=== PATIENT | male | born 1995 | race Caucasian/White ===

== ENCOUNTER 2017-07-31 16:29 | Emergency (ER) | payer OTHER ==
[~2017-07-31] VITALS: Ht 170.2 cm; Wt 66.5 kg
[2017-07-31 17:48] LABS: BASOPHILS # (AUTO) 0.06 x10^3/uL (0-0.3); BASOPHILS % (AUTO) 0 % (0-1); EOSINOPHILS # (AUTO) 0.02 x10^3/uL (0-0.8); EOSINOPHILS % (AUTO) 0 % (1-7); LYMPHOCYTES # (AUTO) 1.67 x10^3/uL (1-6.1); LYMPHOCYTES % (AUTO) 10 % (22-44); MD NO; MEAN CORPUSCULAR HEMOGLOBIN 30.3 pg (27.5-34.5); MEAN CORPUSCULAR HGB CONC 33.2 g/dL (33.2-36.2); MEAN CORPUSCULAR VOLUME 91.2 fL (81-97); MEAN PLATELET VOLUME 7.4 fL (7.4-10.4); MONOCYTES # (AUTO) 1.23 x10^3/uL (0-1.4); MONOCYTES % (AUTO) 7 % (2-9); NEUTROPHILS # (AUTO) 14.67 x10^3/uL (1.8-8.0); NEUTROPHILS % (AUTO) 83 % (42-75); PLATELET COUNT 319 x10^3/uL (130-400); RED BLOOD COUNT 5.35 x10^6/uL (4.38-5.82); RED CELL DISTRIBUTION WIDTH 12.9 % (9.4-14.8)
[2017-07-31] MEDS ORDERED: ACETAMINOPHEN 325 MG TABLET ONE (17:48)
[2017-07-31 17:53] LABS: ALBUMIN 4.1 g/dL (3.4-5.0); ANION GAP 9 mmol/L (5-15); CALCIUM 8.6 mg/dL (8.5-10.1); CHLORIDE 101 mmol/L (98-107)
[2017-07-31] MEDS ORDERED: SODIUM CHLORIDE 0.9% 1,000ML IVBOLUS ONE (18:00)
[2017-07-31] MEDS ORDERED: ACETAMINOPHEN 325 MG TABLET PO ONE (18:00)
[2017-07-31] MEDS ORDERED: SODIUM CHLORIDE 0.9% 1,000 ML IV ONE (18:00)
[2017-07-31] MEDS ORDERED: CEFTRIAXONE PMX 1GM/50ML 50 ML ONE (18:10)
[2017-07-31 18:13] LABS: MICROSCOPIC INDICATED
[2017-07-31 18:24] LABS: CULTURE INDICATED? NO
[2017-07-31] MEDS ORDERED: CEFTRIAXONE PMX 1GM/50ML 50 ML IV ONE (18:30)
[2017-07-31] MEDS ORDERED: KETOROLAC 30 MG/1 ML ONE (18:34)
[2017-07-31] MEDS ORDERED: KETOROLAC 30 MG/1 ML IVPush ONE (19:00)
[2017-07-31] MEDS ORDERED: SODIUM CHLORIDE FLUSH 10ML SYR IVF ONE (19:00)
[2017-07-31 19:02] VITALS: BP 116/58
== END 2017-07-31 19:05 | disposition home or self-care (01) ==
LOC: ED 18:00
DX: R09.1 Pleurisy (principal); J15.9 Unspecified bacterial pneumonia; N20.0 Calculus of kidney
CPT/HCPCS: 36415; 71046; 76770; 80048; 81001; 82040; 85025; 96361; 96374; 96375; 99285; J0696; J1885; J7030

== ENCOUNTER 2019-06-16 23:32 | Emergency (ER) | payer OTHER ==
[~2019-06-16] VITALS: Ht 167.6 cm; Wt 70.0 kg
[2019-06-16] MEDS ORDERED: HYDROmorphone 1 MG/ML, 1ML INJ ONE (23:56)
[2019-06-16] MEDS ORDERED: ONDANSETRON 2MG/ML, 2ML ONE (23:56)
[2019-06-17] MEDS ORDERED: HYDROmorphone 1 MG/ML, 1ML INJ IV ONE
[2019-06-17] MEDS ORDERED: HYDROmorphone 1 MG/ML, 1ML INJ IM ONE
[2019-06-17] MEDS ORDERED: ONDANSETRON 2MG/ML, 2ML IVPush ONE
[2019-06-17] MEDS ORDERED: PROPOFOL 10 MG/ML, 20ML ONE (00:59)
[2019-06-17] MEDS ORDERED: PROPOFOL 10 MG/ML, 20ML IVPush ONE (01:00)
[2019-06-17 01:09] VITALS: BP 130/56
--- NOTE | 2019-06-17 01:12 | NUR ---
Sedation for L ankle reduction complete. Prior to sedation consent signed and placed on chart. BVM, suction, and code cart in place. All monitoring applied. Procedure started @0103 and ended 010. PT back to baseline mentation @0113. Splint in place and awaiting post reduction xr. WCTM. 130 mg propofol used via erp during procedure.
--- NOTE | 2019-06-17 01:23 | NUR ---
70 mg propofol wasted w/ Malissa anderson.
== END 2019-06-17 02:41 | disposition home or self-care (01) ==
LOC: ED 23:56
DX: S93.05XA Dislocation of left ankle joint, initial encounter (principal); S93.305A Unspecified dislocation of left foot, initial encounter; X50.0XXA Overexertion from strenuous movement or load, initial encounter; Y93.79 Activity, other specified sports and athletics; Y92.69 Other specified industrial and construction area as the place of occurrence of the external cause; Y99.8 Other external cause status
CPT/HCPCS: 27840; 73600; 73610; 73700; 96374; 96375; 99152; 99153; 99285; J1170; J2405